=== PATIENT | male | born 1960 | race Caucasian/White ===

== ENCOUNTER 2017-01-31 19:30 | Inpatient (IN) | payer SELFPAY ==
--- NOTE | ~2017-01-31 | EGD ---
EGD REPORT [place] [address] [place] [address] NAME: DEANDRE CHAVEZ : [birth year] STATUS : ADM IN PAT#: [id number] AGE: 56 ADM/REG DATE : 01/31/17 MR#: [id number] REPORT SERV DATE: 02/02/17 DICTATED BY: ROSALIND RICE DATE: 02/02/17 REPORT STATUS : Draft TRANSCRIBED BY: [facility] DATE: 02/02/17 [facility] Patient Name: Deandre Chavez Date of : 1960 Attending MD: ROSALIND RICE MD Procedure Date No Time: 02/02/2017 Procedure: Colonoscopy Indications: Hematochezia, Iron deficiency anemia secondary to chronic blood loss Medicines: Propofol per Anesthesia Complications: No immediate complications. Estimated blood loss: None. Procedure: Pre-Anesthesia Assessment: - After reviewing the risks and benefits, the patient was deemed in satisfactory condition to undergo the procedure. - Prior to the procedure, a History and Physical was performed, and patient medications and allergies were reviewed. The patient's tolerance of previous anesthesia was also reviewed. The risks and benefits of the procedure and the sedation options and risks were discussed with the patient. All questions were answered, and informed consent was obtained. Prior Anticoagulants: The patient has taken no previous anticoagulant or antiplatelet agents. ASA Grade Assessment: II - A patient with mild systemic disease. After reviewing the risks and benefits, the patient was deemed in satisfactory condition to undergo the procedure. After I obtained informed consent, the scope was passed under direct vision. Throughout the procedure, the patient's blood pressure, pulse, and oxygen saturations were monitored continuously. The CF [id number] was introduced through the anus and advanced to the cecum, identified by appendiceal orifice and ileocecal valve. The colonoscopy was performed without difficulty. The ileocecal valve and appendiceal orifice were photographed. The patient tolerated the procedure well. The quality of the bowel preparation was adequate to identify polyps 6 mm and larger in size. The bowel preparation used was polyethylene glycol (PEG). Scope withdrawal time was 8 minutes. Findings: The perianal and digital rectal examinations were normal. Pertinent negatives include normal sphincter tone. Non-bleeding internal hemorrhoids were found during retroflexion and EGD REPORT [address] [address] NAME: DEANDRE CHAVEZ : [birth year] STATUS : ADM IN PAT#: [id number] AGE: 56 ADM/REG DATE : 01/31/17 MR#: [id number] REPORT SERV DATE: 02/02/17 DICTATED BY: ROSALIND RICE DATE: 02/02/17 REPORT STATUS : Draft TRANSCRIBED BY: [employer] SERVICES DATE: 02/02/17 were small and Grade I (internal hemorrhoids that do not prolapse). Multiple medium-mouthed diverticula were found in the entire colon. A sessile polyp was found in the cecum. The polyp was 7 mm in size. The polyp was removed with a hot snare. Resection and retrieval were complete. Estimated blood loss: none. A sessile polyp was found in the ascending colon. The polyp was 12 mm in size. The polyp was removed with a hot snare. Resection and retrieval were complete. Estimated blood loss: none. The exam was otherwise without abnormality. Impression: - Non-bleeding internal hemorrhoids. - Moderate diverticulosis in the entire examined colon. - One 7 mm polyp in the cecum. Resected and retrieved. - One 12 mm polyp in the ascending colon. Resected and retrieved. - The examination was otherwise normal. - Recent episode of outlet bleeding. - No evidence of colonic bleeding. Recommendation: - Return patient to [facility] for [facility] care. - Regular diet. - Avoid NSAID medications for 10 days after polypectomies. - Follow-up pathology. - He was advised to arrange a repeat surveillance colonscopy in 3 years for multiple adenomatous polyps and polyps greater than 1 cm in size. - OK for discharge with follow-up with primary care. Procedure Code(s): --- Professional --- 76989, Colonoscopy, flexible, proximal to splenic flexure; with removal of tumor(s), polyp(s), or other lesion(s) by snare technique Diagnosis Code(s): --- Professional --- K64.0, First degree hemorrhoids K57.30, Diverticulosis of large intestine without perforation or abscess without bleeding D12.2, Benign neoplasm of ascending colon D12.0, Benign neoplasm of cecum K92.1, Melena D50.0, Iron deficiency anemia secondary to blood loss (chronic) CPT copyright 2013 [employer]. All rights reserved. EGD REPORT [place] [address] [place]. [address] NAME: DEANDRE CHAVEZ : [birth year] STATUS : ADM IN [facility]#: [id number] AGE: 56 ADM/REG DATE : 01/31/17 MR#: [id number] REPORT SERV DATE: 02/02/17 DICTATED BY: ROSALIND RICE. DATE: 02/02/17 REPORT STATUS : Draft TRANSCRIBED BY: [employer] SERVICES DATE: 02/02/17 The codes documented in this report are preliminary and upon chip mixer review may be revised to meet current compliance requirements. Attending Participation: I personally performed the entire procedure. ROSALIND RICE MD 02/02/2017 3:09 PM This report has been signed electronically. Number of Addenda: 0 Note Initiated On: 02/02/2017 2:18 PM Scope Withdrawal Time 0 hours 8 minutes 2 seconds [address] [facility] [place] [address]
--- NOTE | ~2017-01-31 | HP ---
History And Physical [facility] [address] [place]. [address] NAME: DEANDRE CHAVEZ : [birth year] STATUS : ADM IN [facility]#: [id number] AGE: 56 ADM/REG DATE : 01/31/17 MR#: [id number] REPORT SERV DATE: 01/31/17 DICTATED BY: SAMANTHA MILLER DATE: 01/31/17 REPORT STATUS : Draft TRANSCRIBED BY: MODL DATE: 01/31/17 DATE OF ADMISSION: 01/31/2017 CHIEF COMPLAINT: A 56-year-old male presenting with bright red blood per rectum. HISTORY OF PRESENTING ILLNESS: The patient's history was obtained through an interview with the patient, daughter, son, and girlfriend. The patient, about a week ago, had been visiting [place] with his girlfriend and began to feel ill. Over this last weekend around 01/27/2017 and 01/28/2017, he states he was "too weak" to do very much, even tried to go to work this week, but was feeling ill and just weak, fatigued. Then this morning, the patient had rectal urgency and thought he was going to have diarrhea, but he actually had "pure blood" pass. It was bright red and actually had some clots to begin with. He has had a few bowel movements today. Late in the morning, he tried to stand up after eating and had orthostatic-like symptoms with lightheadedness, felt hot and sweaty with "cold sweats." He tried to squat down, but then collapsed to the ground passing out briefly. When he passed out, he actually lost bowel continence and bright red blood soiled his jeans. He describes intermittent abdominal pain over the last several days in his lower quadrants, left greater than right, a cramping-like quality, 5 to 6 out of 10 severity. It has actually improved on the day of this admission. He has had slight nausea, but no vomiting. No shortness of breath. The patient does have occasional chest discomfort. It is "catching" discomfort that has been present for at least a year. He did have an episode of it today, but he cannot really describe any precise relieving or exacerbating factors. No fevers or chills. No melena. No reflux. REVIEW OF SYSTEMS: Otherwise, a 14-point review of systems was obtained and was negative. PAST MEDICAL HISTORY: Denies any. PAST SURGICAL HISTORY: Denies any. ALLERGIES: NO KNOWN DRUG ALLERGIES. SOCIAL HISTORY: No tobacco abuse. Drinks occasional liquor or beer, none in several days. He lives in [place], [place], with his girlfriend. He has two children. He works driving History And Physical [address] 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 FAMILY HISTORY: Mother of lung cancer. Father of possible colon cancer and may have had diverticulitis as well. A sister is 69 years old and is actually now undergoing a colectomy, but for unknown reason. CURRENT MEDICATIONS: Denies any. He does take an occasional ibuprofen or aspirin, but none recently. PHYSICAL EXAMINATION: VITAL SIGNS: Temperature 98.9, pulse 86, blood pressure 145/93, respiratory rate 16, O2 saturation 95% on room air. GENERAL: Pleasant, cooperative male, in no evidence of acute distress. HEENT: Pupils equal, round, and reactive to light. No conjunctival pallor. No scleral icterus. Nares are patent. Oropharynx is clear of obstruction. Moist mucous membranes. NECK: Trachea midline. No thyromegaly. LYMPH: No cervical lymphadenopathy. No supraclavicular lymphadenopathy. RESPIRATORY: Clear to auscultation at bases. No wheezes, rales, or rhonchi. Normal respiratory effort. CARDIOVASCULAR: Regular rate and rhythm. No murmurs, rubs, or gallops. No extremity edema is appreciated. ABDOMEN: Completely soft. There is no tenderness at all. No distention. No hepatosplenomegaly. DERMATOLOGICAL: Warm and dry extremities. No pallor, no cyanosis. PSYCHIATRIC: Normal affect. Good mood. Alert and oriented x3. LABORATORY DATA: White blood count 15, hemoglobin 12, hematocrit 38, platelets 578. Sodium 139, potassium 3.9, chloride 102, bicarb 27, BUN 25, creatinine 1.6, glucose 165. Liver enzymes within normal limits. STUDIES: EKG by my own evaluation shows sinus rhythm, T-wave inversions in leads V4 through V6, but they are very small. ASSESSMENT AND PLAN: 1. Hematochezia. Obtain a GI consult with Dr. Stephane Welch. I discussed the case over the phone with him. For now, we will hold off on a bowel prep, as it seems that his bleeding has stopped and monitor overnight. Follow hemoglobin and hematocrit. If continued heavy bleeding, we will proceed with an urgent bleeding scan. 2. [address]ope. [address] on IV fluids. Check telemetry. 3. Renal insufficiency. Place on IV fluids. 4. Leukocytosis. Monitor for fevers. No current abdominal pain. 5. Hyperglycemia. Check hemoglobin A1c. Place on sliding scale insulin. JUSTIN/BLAYNE History And Physical [address] [address] NAME: DEANDRE CHAVEZ : [birth year] STATUS : ADM IN [facility]#: [id number] AGE: 56 ADM/REG DATE : 01/31/17 MR#: [id number] REPORT SERV DATE: 01/31/17 DICTATED BY: SAMANTHA MILLER DATE: 01/31/17 REPORT STATUS : Draft TRANSCRIBED BY: BLAYNE DATE: 01/31/17 Samantha Miller M.D. / [id number] CC: MD Stephane Strong M.D.
--- NOTE | ~2017-01-31 | DS ---
Discharge Summary [facility] [address] [place]. [address] NAME: DEANDRE CHAVEZ : [birth year] STATUS : DIS IN PAT#: [id number] AGE: 56 ADM/REG DATE : 01/31/17 MR#: [id number] REPORT SERV DATE: 02/04/17 DICTATED BY: MARIANA LOPEZ DATE: 02/03/17 REPORT STATUS : Draft TRANSCRIBED BY: MODL DATE: 02/03/17 ADMISSION DATE: 01/31/2017 DISCHARGE DATE: 02/03/2017 The patient is a 56-year-old male with no significant medical history, who presented to the hospital with a complaint of bright red blood per rectum. For further details please refer to the H and P dictated by Dr. Chucky Acuna on 01/31/2017. HOSPITAL COURSE: Upon presentation to the hospital the patient was diagnosed with lower GI bleed and admitted under the Hospitalist Service for further management. Given his diagnosis GI was consulted. For further details please refer to consultation note by GI dictated on 02/02/2017. The patient was taken to the Endoscopy Suite for a colonoscopy after adequate prep. Colonoscopy noted 2 polyps, one measuring 7 mm in the cecum and one measuring 12 mm in the ascending colon. Both polyps were resected. Overall, also nonbleeding internal hemorrhoids were noted as well as moderate diverticulosis in the entire colon. The patient tolerated the procedure well. The patient was returned to the medical floor where he remained hemodynamically stable. He was started on diet and he tolerated. Given above findings, given his hemodynamic stability, the patient has been cleared by GI for discharge. Given that the patient had polypectomy, the patient has been instructed not to take any NSAIDs for the next 10 days, and the patient has been instructed to follow up with primary care for review of the pathology results. The patient voices understanding and is agreeable with this plan. DISCHARGE DIAGNOSES: 1. Hematochezia. 2. Acute kidney injury. 3. Leukocytosis. 4. Hyperglycemia. DISCHARGE PHYSICAL EXAMINATION: VITAL SIGNS: Blood pressure 131/67 with a pulse of 68, respirations 16, and O2 saturation 95% on room air. GENERAL: The patient lying in bed, in no acute distress. Appears stated age. HEENT: Normocephalic and atraumatic. Extraocular motors intact. Moist oral mucosa. Anicteric sclerae. NECK: Trachea midline and symmetric. No masses noted. No JVD present. No hepatojugular reflux noted. CHEST: Nontender to palpation. CARDIOVASCULAR: Regular rate and rhythm. S1, S2. No murmurs, rubs, or gallops. LUNGS: Clear to auscultation bilaterally. ABDOMEN: Obese. Positive bowel sounds. Nontender. Nondistended. EXTREMITIES: No cyanosis, no clubbing, no edema. NEUROLOGIC: Alert and oriented x3. No focal deficits appreciated. DISCHARGE MEDICATIONS: The patient currently on no medications. PROCEDURES: A colonoscopy performed on 02/02/2017. Please refer to colonoscopy results by Discharge Summary [address] [address] NAME: DEANDRE CHAVEZ : [birth year] STATUS : DIS IN PAT#: [id number] AGE: 56 ADM/REG DATE : 01/31/17 MR#: [id number] REPORT SERV DATE: 02/04/17 DICTATED BY: MARIANA LOPEZ DATE: 02/03/17 REPORT STATUS : Draft TRANSCRIBED BY: BLAYNE DATE: 02/03/17 GI. DISPOSITION: The patient will be discharged home to follow with primary care. ACTIVITY: As tolerated. DIET: Regular. Greater than 30 minutes were spent coordinating discharge, dictation of note, discussion of the patient with nursing staff, and also providing counseling. HOMER/BLAYNE Mariana Lopez MD / [id number] CC: Mariana Lopez MD
--- NOTE | ~2017-01-31 | CN ---
Consultation Report [facility] [address] [place]. [address] NAME: DEANDRE CHAVEZ : [birth year] STATUS : ADM IN PAT#: [id number] AGE: 56 ADM/REG DATE : 01/31/17 MR#: [id number] REPORT SERV DATE: 02/03/17 DICTATED BY: STEPHANE WELCH DATE: 02/02/17 REPORT STATUS : Draft TRANSCRIBED BY: MODL DATE: 02/02/17 CONSULTATION DATE OF CONSULTATION: 02/01/2017 DICTATED BY: Shavon Da Silva, nurse practitioner. REASON FOR CONSULTATION: Rectal bleeding. HISTORY OF PRESENT ILLNESS: This 56-year-old white male was admitted with rectal bleeding and episode of syncope. He has not had prior colonoscopy. He reports he traveled last week to [place] with his girlfriend to a [employer] He did not feel well last week, and experienced some fatigued. Over the last few days, he has noted intermittent lower abdominal cramping. No significant pain. He usually has a BM daily. Yesterday morning, he noted rectal urgency and passed bright red blood with clots initially. Denies any stool with the blood. He had several episodes of passing blood and denies any melena. He stood up after eating and became diaphoretic. He had an episode of syncope with bowel incontinence. He denies any nausea or vomiting, fever or chills, or chest pain. He denies any NSAID medication use. His hemoglobin was 12.9 on admission and has dropped to 10.6. He has not had a BM or passed any blood since arrival in the hospital. He is tolerating clear liquids. PAST MEDICAL HISTORY: None. PAST SURGICAL HISTORY: None. ALLERGIES: NO KNOWN DRUG ALLERGIES. HOME MEDICATIONS: No home medications. SOCIAL HISTORY: The patient lives in [place], [place], with his girlfriend. He has two children and his daughter is at the bedside. He denies tobacco use. 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 He reports drinking one to two beers every other day. FAMILY HISTORY: His mother had lung cancer and at age 82, father had colon resection for diverticulitis and questionable colon cancer, sister had diverticulitis. REVIEW OF SYSTEMS: Otherwise unremarkable for constitutional, endocrine, neurologic, psychiatric, ocular, ENT, pulmonary, cardiovascular, GI, , or rheumatologic symptoms except for as noted above. PHYSICAL EXAMINATION: VITAL SIGNS: Afebrile. Vital signs stable. No orthostatic hypotension noted. GENERAL: Alert oriented x3. No acute distress. Consultation Report [facility] [place] [place]. [address] NAME: DEANDRE CHAVEZ : [birth year] STATUS : ADM IN PAT#: [id number] AGE: 56 ADM/REG DATE : 01/31/17 MR#: [id number] REPORT SERV DATE: 02/03/17 DICTATED BY: STEPHANE WELCH DATE: 02/02/17 REPORT STATUS : Draft TRANSCRIBED BY: BLAYNE DATE: 02/02/17 HEENT: Grossly within normal limits. LUNGS: Clear to auscultation bilaterally. CARDIOVASCULAR: Regular rate and rhythm without murmur, rub, or gallop noted. ABDOMEN: Soft, nondistended, nontender. Active bowel sounds. No masses or hepatosplenomegaly noted. EXTREMITIES: Without edema. LABORATORY DATA: WBC was elevated at 15.3 on admission and is now normal at 9.9, hemoglobin low at 12.9 and dropped to 10.6, PTT 32.5, PT 14.2, INR 1.1. CO2 is low at 21, BUN 20, creatinine 1.19. Glucose mildly elevated at 111. Calcium low at 7.8, albumin low at 3.1, liver enzymes normal, troponin negative. IMPRESSION: 1. Hematochezia without further bleeding at the present time. 2. Syncope. 3. Leukocytosis on admission that has now resolved. 4. Hyperglycemia. PLAN: We will continue clear liquid diet. We will give 4 L PEG prep today. We will keep patient n.p.o. after midnight a nd proceed with colonoscopy tomorrow at 2:30 p.m. Reviewed risks and benefits of procedure with the patient and he is willing to proceed. All questions were answered. REGULO/BLAYNE Stephane Welch M.D. / [id number] CC: Bryant Gray MD
[2017-01-31 16:48] LABS: BASOPHILS 0.4 %; BASOPHILS ABSOLUTE 0.06 10/3/uL (0.0-0.16); EOSINOPHILS 0.8 %; EOSINOPHILS ABSOLUTE 0.13 10/3/uL (0.0-0.53); HEMATOCRIT 38.3 % (40.0-51.0); HEMOGLOBIN 12.9 g/dL (13.6-17.8); IMMATURE GRANULOCYTES 0.5 %; IMMATURE GRANULOCYTES ABSOLUTE 0.08 10/3/uL (0.0-0.11); LYMPHOCYTES 19.2 %; LYMPHOCYTES ABSOLUTE 2.95 10/3/uL (0.67-4.30); MEAN CORPUS HGB CONC 33.7 g/dL (32.0-36.0); MEAN CORPUSCULAR HEMOGLOB 29.9 pg (26.0-34.0); MEAN CORPUSCULAR VOLUME 88.7 fL (80-100); MEAN PLATELET VOLUME 10.3 fL (9.2-13.0); MONOCYTES 4.8 %; MONOCYTES ABSOLUTE 0.73 10/3/uL (0.21-1.20); NEUTROPHILS 74.3 %; NEUTROPHILS ABSOLUTE 11.39 10/3/uL (2.02-8.40); PLATELET COUNT 378 10/3/uL (150-400); RBC DISTRIBUTION WIDTH 15.2 % (12.0-16.0); RED CELL COUNT 4.32 10/6/uL (4.7-6.1); WHITE BLOOD CELLS 15.3 10/3/uL (4.5-10.5)
[2017-01-31 16:53] LABS: MANUAL DIFF NO %
[2017-01-31 16:56] LABS: PROTIME (NOT ORD) 13.4 SEC (12.0-14.5)
[2017-01-31 17:03] LABS: ALBUMIN 4.3 G/DL (3.5-5.0); ALKALINE PHOSPHATASE 101 U/L (45-117); BUN (BLOOD UREA NITROGEN) 25 MG/DL (6-23); CALCIUM, SERUM 9.1 MG/DL (8.5-10.4); CHLORIDE, SERUM 102 MMOL/L (96-112); CO2 (CARBON DIOXIDE) 27 MMOL/L (24-34); CREATININE 1.68 MG/DL (0.70-1.30); GFR AFRICAN AMERICAN 53 ML/MIN (>=60); GFR NON AFRICAN AMERICAN 45 ML/MIN (>=60); GLOBULIN 4.4 G/DL (2.5-4.1); GLUCOSE, SERUM 165 MG/DL (60-99); POTASSIUM, SERUM 3.9 MMOL/L (3.5-5.3); SGOT(AST) 49 U/L (5-40); SGPT(ALT) 40 U/L (5-65); SODIUM, SERUM 139 MMOL/L (135-148); TOTAL BILIRUBIN 0.6 MG/DL (0-1.2); TOTAL PROTEIN 8.7 G/DL (6.0-8.5)
[~2017-01-31 19:30] MED LIST: *DENIES
[2017-02-01 02:11] LABS: HEMATOCRIT 32.7 % (40.0-51.0); HEMOGLOBIN 10.8 g/dL (13.6-17.8)
[2017-02-01 05:32] LABS: BASOPHILS 0.6 %; BASOPHILS ABSOLUTE 0.06 10/3/uL (0.0-0.16); EOSINOPHILS 2.1 %; EOSINOPHILS ABSOLUTE 0.21 10/3/uL (0.0-0.53); HEMATOCRIT 31.6 % (40.0-51.0); HEMOGLOBIN 10.6 g/dL (13.6-17.8); IMMATURE GRANULOCYTES 0.5 %; IMMATURE GRANULOCYTES ABSOLUTE 0.05 10/3/uL (0.0-0.11); LYMPHOCYTES 36.9 %; LYMPHOCYTES ABSOLUTE 3.65 10/3/uL (0.67-4.30); MEAN CORPUS HGB CONC 33.5 g/dL (32.0-36.0); MEAN CORPUSCULAR HEMOGLOB 29.9 pg (26.0-34.0); MEAN PLATELET VOLUME 10.7 fL (9.2-13.0); MONOCYTES 7.5 %; MONOCYTES ABSOLUTE 0.74 10/3/uL (0.21-1.20); NEUTROPHILS 52.4 %; NEUTROPHILS ABSOLUTE 5.19 10/3/uL (2.02-8.40); PLATELET COUNT 329 10/3/uL (150-400); RBC DISTRIBUTION WIDTH 15.1 % (12.0-16.0); RED CELL COUNT 3.55 10/6/uL (4.7-6.1); WHITE BLOOD CELLS 9.9 10/3/uL (4.5-10.5)
[2017-02-01 05:39] LABS: INTERNATIONAL NORMAL RATI 1.1 UNITS (-); MANUAL DIFF NO %; PARTIAL THROMBO TIME 32.5 SEC (22.5-37.2); PROTIME (NOT ORD) 14.2 SEC (12.0-14.5)
[2017-02-01 05:56] LABS: CHLORIDE, SERUM 110 MMOL/L (96-112); CREATININE 1.19 MG/DL (0.70-1.30); GFR AFRICAN AMERICAN 80 ML/MIN (>=60); GFR NON AFRICAN AMERICAN 69 ML/MIN (>=60); POTASSIUM, SERUM 3.9 MMOL/L (3.5-5.3); SGOT(AST) 30 U/L (5-40); SGPT(ALT) 25 U/L (5-65); SODIUM, SERUM 142 MMOL/L (135-148); TOTAL BILIRUBIN 0.4 MG/DL (0-1.2); TROPONIN I <0.02 NG/ML (<0.05)
[2017-02-01 05:59] LABS: A/G RATIO 0.9 (0.7-1.9); ALBUMIN 3.1 G/DL (3.5-5.0); ALKALINE PHOSPHATASE 70 U/L (45-117); BUN (BLOOD UREA NITROGEN) 20 MG/DL (6-23); CALCIUM, SERUM 7.8 MG/DL (8.5-10.4); CO2 (CARBON DIOXIDE) 21 MMOL/L (24-34); GLOBULIN 3.3 G/DL (2.5-4.1); GLUCOSE, SERUM 111 MG/DL (60-99); TOTAL PROTEIN 6.4 G/DL (6.0-8.5)
[2017-02-01 11:55] LABS: HEMATOCRIT 30.4 % (40.0-51.0); HEMOGLOBIN 10.2 g/dL (13.6-17.8)
[2017-02-01 22:14] LABS: HEMATOCRIT 29.8 % (40.0-51.0); HEMOGLOBIN 9.8 g/dL (13.6-17.8)
[2017-02-02 05:23] LABS: A/G RATIO 0.9 (0.7-1.9); ALBUMIN 3.1 G/DL (3.5-5.0); ALKALINE PHOSPHATASE 73 U/L (45-117); CALCIUM, SERUM 7.9 MG/DL (8.5-10.4); CHLORIDE, SERUM 108 MMOL/L (96-112); CO2 (CARBON DIOXIDE) 25 MMOL/L (24-34); CREATININE 1.11 MG/DL (0.70-1.30); GFR AFRICAN AMERICAN 87 ML/MIN (>=60); GFR NON AFRICAN AMERICAN 75 ML/MIN (>=60); GLOBULIN 3.4 G/DL (2.5-4.1); GLUCOSE, SERUM 101 MG/DL (60-99); POTASSIUM, SERUM 3.7 MMOL/L (3.5-5.3); SGOT(AST) 26 U/L (5-40); SGPT(ALT) 23 U/L (5-65); SODIUM, SERUM 141 MMOL/L (135-148); TOTAL BILIRUBIN 0.5 MG/DL (0-1.2); TOTAL PROTEIN 6.5 G/DL (6.0-8.5)
[2017-02-02 05:32] LABS: BASOPHILS 0.7 %; BASOPHILS ABSOLUTE 0.05 10/3/uL (0.0-0.16); EOSINOPHILS 2.7 %; EOSINOPHILS ABSOLUTE 0.18 10/3/uL (0.0-0.53); HEMATOCRIT 30.1 % (40.0-51.0); IMMATURE GRANULOCYTES 0.4 %; IMMATURE GRANULOCYTES ABSOLUTE 0.03 10/3/uL (0.0-0.11); LYMPHOCYTES 41.7 %; LYMPHOCYTES ABSOLUTE 2.82 10/3/uL (0.67-4.30); MANUAL DIFF NO %; MEAN CORPUS HGB CONC 33.2 g/dL (32.0-36.0); MEAN CORPUSCULAR HEMOGLOB 29.7 pg (26.0-34.0); MEAN CORPUSCULAR VOLUME 89.3 fL (80-100); MEAN PLATELET VOLUME 10.6 fL (9.2-13.0); MONOCYTES 5.9 %; NEUTROPHILS 48.6 %; NEUTROPHILS ABSOLUTE 3.28 10/3/uL (2.02-8.40); PLATELET COUNT 330 10/3/uL (150-400); RBC DISTRIBUTION WIDTH 15.1 % (12.0-16.0); RED CELL COUNT 3.37 10/6/uL (4.7-6.1); WHITE BLOOD CELLS 6.8 10/3/uL (4.5-10.5)
[2017-02-02 05:41] LABS: INTERNATIONAL NORMAL RATI 1.1 UNITS (-); PARTIAL THROMBO TIME 33.1 SEC (22.5-37.2); PROTIME (NOT ORD) 14.1 SEC (12.0-14.5)
[2017-02-02 05:46] LABS: BUN (BLOOD UREA NITROGEN) 11 MG/DL (6-23); DIRECT BILIRUBIN < 0.1 MG/DL (0.0-0.4); INDIRECT BILIRUBIN(NOT ORDER) 0.4 MG/DL (0.1-0.9)
[2017-02-02 12:15] LABS: HEMATOCRIT 29.8 % (40.0-51.0); HEMOGLOBIN 9.8 g/dL (13.6-17.8)
[2017-02-02 20:25] LABS: HEMATOCRIT 31.9 % (40.0-51.0); HEMOGLOBIN 10.6 g/dL (13.6-17.8)
[2017-02-03 05:12] LABS: BASOPHILS 0.2 %; BASOPHILS ABSOLUTE 0.03 10/3/uL (0.0-0.16); EOSINOPHILS 1.1 %; EOSINOPHILS ABSOLUTE 0.16 10/3/uL (0.0-0.53); HEMATOCRIT 30.5 % (40.0-51.0); HEMOGLOBIN 10.2 g/dL (13.6-17.8); IMMATURE GRANULOCYTES 0.3 %; IMMATURE GRANULOCYTES ABSOLUTE 0.05 10/3/uL (0.0-0.11); LYMPHOCYTES 23.1 %; LYMPHOCYTES ABSOLUTE 3.44 10/3/uL (0.67-4.30); MEAN CORPUS HGB CONC 33.4 g/dL (32.0-36.0); MEAN CORPUSCULAR VOLUME 89.7 fL (80-100); MEAN PLATELET VOLUME 10.8 fL (9.2-13.0); MONOCYTES 6.5 %; MONOCYTES ABSOLUTE 0.97 10/3/uL (0.21-1.20); NEUTROPHILS 68.8 %; NEUTROPHILS ABSOLUTE 10.26 10/3/uL (2.02-8.40); PLATELET COUNT 356 10/3/uL (150-400); RBC DISTRIBUTION WIDTH 14.9 % (12.0-16.0)
[2017-02-03 05:13] LABS: MANUAL DIFF NO %; WHITE BLOOD CELLS 14.9 10/3/uL (4.5-10.5)
[2017-02-03 05:27] LABS: A/G RATIO 0.9 (0.7-1.9); ALBUMIN 3.1 G/DL (3.5-5.0); ALKALINE PHOSPHATASE 80 U/L (45-117); BUN (BLOOD UREA NITROGEN) 12 MG/DL (6-23); CALCIUM, SERUM 8.5 MG/DL (8.5-10.4); CHLORIDE, SERUM 108 MMOL/L (96-112); CO2 (CARBON DIOXIDE) 26 MMOL/L (24-34); CREATININE 1.33 MG/DL (0.70-1.30); GFR AFRICAN AMERICAN 70 ML/MIN (>=60); GFR NON AFRICAN AMERICAN 60 ML/MIN (>=60); GLOBULIN 3.4 G/DL (2.5-4.1); GLUCOSE, SERUM 109 MG/DL (60-99); POTASSIUM, SERUM 3.6 MMOL/L (3.5-5.3); SGOT(AST) 19 U/L (5-40); SGPT(ALT) 21 U/L (5-65); SODIUM, SERUM 142 MMOL/L (135-148); TOTAL BILIRUBIN 0.3 MG/DL (0-1.2); TOTAL PROTEIN 6.5 G/DL (6.0-8.5)
== END 2017-02-03 12:11 | disposition home or self-care (01) | DRG 378 ==
LOC: ER 19:30 → 7NO 19:32
PROVIDERS: Emergency Medicine; Hospitalist; Internal Medicine Gastroenterology
PROC: 0DBH8ZZ Excision of Cecum, Via Natural or Artificial Opening Endoscopic (ICD-10-PCS; 2017-02-02)
PROC: 0DBK8ZZ Excision of Ascending Colon, Via Natural or Artificial Opening Endoscopic (ICD-10-PCS; principal; 2017-02-02 14:30)
DX: K92.1 Melena (principal); N17.9 Acute kidney failure, unspecified; R55 Syncope and collapse; Z80.1 Family history of malignant neoplasm of trachea, bronchus and lung; R73.9 Hyperglycemia, unspecified; K64.0 First degree hemorrhoids; D12.0 Benign neoplasm of cecum; D50.0 Iron deficiency anemia secondary to blood loss (chronic)
CPT/HCPCS: 36415; 80053; 80076; 82962; 83036; 83735; 84484; 85014; 85018; 85025; 85610; 85730; 86850; 86900; 86901; 88305; 93005; 99285; A9270-GY